=== PATIENT | female | born 1955 | race Hispanic/Latino ===

== ENCOUNTER 2018-09-09 18:58 | Emergency (ER) | payer SELFPAY ==
--- OUTSIDE RECORDS SUMMARY | 2018-09-09 19:00 | XMS REPORT | Clinical Summary ---
Author Author [facility] Address Unknown Phone Unavailable Care Team Providers Care Preanalytics Team Lead Name Role Phone Asked, No Pcp PCP Unavailable Allergies Not on File Medications Not on file Active Problems Not on file Encounters Care Team Description Date Type Specialty Aliyah Dale MD Clary, Danisha, MA Routine medical exam (Primary Dx) 03/18/2018 [facility] after 09/08/2017 Social History Date Tobacco Use Types Packs/Day Years Used Never Assessed Sex Assigned at Date Recorded Not on file Industry Job Start Date Occupation Not on file Not on file Not on file Travel End Travel History Travel Start No recent travel history available. Last Filed Vital Signs Not on file Plan of Treatment Health Maintenance Due Date Last Done Comments CERVICAL CANCER SCREENING 1977 BREAST CANCER SCREENING 2006 COLON CANCER SCREENING 2006 SHINGLES VACCINES (1 of 2006 2) INFLUENZA VACCINE 03/04/2018 Procedures Comments Procedure Name Priority Date/Time Associated Diagnosis WELLNESS EVENT QFT Routine 03/18/2018 Routine medical exam 6:56 AM CDT after 09/08/2017 Results * Wellness event QFT (03/18/2018 6:56 AM CDT) Quantiferon TB gold plus Negative Negative [facility] Comment: Interpretive Data: Quantiferon TB Gold Plus Interferon gamma release is measured for specimens from each of the four collection tubes. A qualitative result (Negative, Positive, or Indeterminate) is based on interpretation of the four values, NIL, MITOGEN minus NIL (MITOGEN-NIL), TB1 minus NIL (TB1-NIL), and TB2 minus NIL (TB2-NIL). The NIL value represents nonspecific reactivity produced by the patient specimen. The MITOGEN-NIL value serves as the positive control for the patient specimen, demonstrating successful lymphocyte activity. The TB1-NIL tube specifically detects CD4+ lymphocyte reactivity, specifically stimulated by the TB1 antigens. The TB2-NIL tube detects both CD4+ and CD8+ lymphocyte reactivity, stimulated by TB2 antigens. An overall Negative result does not completely rule out TB infection. A false-positive result in the absence of other clinical evidence of TB infection is not uncommon. Refer to: Updated Guidelines for Using Interferon Gamma Release Assays to Detect Mycobacterium tuberculosis Infection --- [place], 2010 (http://www.cdc.gov/mmwr/previ ew/mmwrhtml/gd4067h4.htm), for more information concerning test performance in low-prevalence populations and use in occupational screening. Quantiferon plus TB1 0.06 0.00 - 0.34 IU/mL [facility] minus NIL Quantiferon plus TB2 0.08 0.00 - 0.34 IU/mL [facility] minus NIL Quantiferon mitogen minus >10.00 IU/mL [facility] NIL Quantiferon NIL 0.02 IU/mL [facility] Comment: Performed by [facility], [address] [place] [address] [email or web address], Ivan Blanco MD - Lab. Director Specimen Serum Performing Organization Address City/State/Zipcode Phone Number [facility] [address] [place] [address] after 09/08/2017 Insurance Payer Benefit Subscriber ID Type Phone Address Plan / Group CIGNA CIGNA OPEN xxxxxxxxxxx HMO ACCESS/NET WORK Advance Directives Patient has advance care planning documents on file. For more information, sai lundy contact: Ken Conley [address] [place] [address]
== END 2018-09-09 19:04 | disposition left against medical advice (07) ==
LOC: ER 18:58
DX: S09.93XA Unspecified injury of face, initial encounter (principal)

== ENCOUNTER 2018-09-09 19:52 | Emergency (ER) | payer OTHER ==
[~2018-09-09] VITALS: Ht 154.9 cm; Wt 83.5 kg
--- OUTSIDE RECORDS SUMMARY | 2018-09-09 19:55 | XMS REPORT | Clinical Summary ---
Author Author [facility] Address Unknown Phone Unavailable Care Team Providers Care Yard Truck Driver Name Role Phone Asked, No Pcp PCP [...] CDT) Quantiferon TB gold plus Negative Negative [facility] Comment: Interpretive Data: Quantiferon TB Gold [...] tuberculosis Infection --- [place], 2010 (http://www.cdc.gov/mmwr/previ ew/mmwrhtml/xw9986i4.htm), for more information concerning test performance in low-prevalence populations and use in occupational screening. Quantiferon plus TB1 0.06 0.00 - 0.34 IU/mL [facility] minus NIL Quantiferon plus TB2 0.08 0.00 - 0.34 IU/mL [facility] minus NIL Quantiferon mitogen minus >10.00 IU/mL [facility] NIL Quantiferon NIL 0.02 IU/mL [facility] Comment: Performed by [facility], [address] [place] [address] [email or web address], Ivan Blanco MD - Lab. Director Specimen Serum Performing Organization Address City/State/Zipcode Phone Number [facility] [address] [place] [address] after 09/08/2017 Insurance Payer Benefit Subscriber ID Type Phone Address Plan / Group CIGNA CIGNA OPEN xxxxxxxxxxx HMO ACCESS/NET WORK Advance Directives Patient has advance care planning documents on file. For more information, sai lundy contact: Ken Conley [address] [facility] [place] [address]
[2018-09-09] MEDS ORDERED: HYDROCODONE/APAP 5MG-325MG TAB PO ONE (20:30)
--- NOTE | 2018-09-09 21:08 | Diagnostic Imaging Report ---
History: Swollen eye Comparison studies: None Technique: Axial images were obtained from the skull base to the vertex. Coronal and sagittal reconstructions obtained from the axial data. Dose modulation, iterative reconstruction, and/or weight based adjustment of the mA/kV was utilized to reduce the radiation dose to as low as reasonably achievable. Findings: Scalp/skull: A large acute left periorbital and supraorbital superficial hematoma is not associated with subcutaneous emphysema or with hyperdense foreign bodies. No underlying fractures. Extra-axial spaces: No masses. No fluid collections. Brain sulci: Appropriate for age. Ventricles: Normal in size and configuration. No hydrocephalus. Parenchyma: Subtle hypodensities in the supratentorial white matter are small vessel ischemic changes. No masses, hemorrhage, acute or chronic cortical vascular insults. Sellar/suprasellar region: No abnormalities Craniocervical junction: Patent foramen magnum. No Chiari one malformation. IMPRESSION: 1. Acute left periorbital/supraorbital superficial hematoma. 2. No underlying fractures. 3. No acute intracranial abnormalities. 4. Incidental mild supratentorial white matter small vessel ischemic changes. Signed by: Dr. Antonio Guo M.D. on 09/09/2018 9:05 PM
== END 2018-09-09 21:20 | disposition home or self-care (01) ==
LOC: FSED 19:52
DX: S00.83XA Contusion of other part of head, initial encounter (principal); H11.32 Conjunctival hemorrhage, left eye; W22.09XA Striking against other stationary object, initial encounter; Y92.008 Other place in unspecified non-institutional (private) residence as the place of occurrence of the external cause
CPT/HCPCS: 70450; 99283

== ENCOUNTER 2019-11-14 09:48 | Inpatient (IN) | payer OTHER ==
[~2019-11-14] VITALS: Ht 154.9 cm; Wt 78.2 kg
--- OUTSIDE RECORDS SUMMARY | 2019-11-14 09:52 | XMS REPORT ---
[facility] Address Unknown Phone Unavailable Care Team Providers Care Continuity Editor Name Role Phone Darian NEVILLE Unavailable Unavailable Problems This patient has no known problems. Allergies, Adverse Reactions, Alerts This patient has no known allergies or adverse reactions. Medications This patient has no known medications. Results Test Description Test Time Test Comments Text Results Atomic Results Result Comments CT BRAIN WO-HOPD 2018-09-09 21:03:00 [place] [address] Patient Name: CHRISTAL MCCOLLUM MR #: [id number] : 1955 Age/Sex: 63/F Req #: [id number] Adm Physician: Ordered by: LENCHO NEVILLE MD Report #: [id number] Location: [facility] Room/Bed: Procedure: [id number] HOPD/CT BRAIN WO-HOPD Exam Date: 09/09/18 Exam Time: 2044 REPORT STATUS: Signed History: Swollen eye Comparison studies: None Technique: Axial images were obtained from the skull base to the vertex. Coronal and sagittal reconstructions obtained from the axial data. Dose modulation, iterative reconstruction, and/or weight based adjustment of the mA/kV was utilized to reduce the radiation dose to as low as reasonably achievable. Findings: Scalp/skull: A large acute left periorbital a nd supraorbital superficial hematoma is not associated with subcutaneous emphysema or with hyperdense foreign bodies. No underlying fractures. Extra-axial spaces: No masses. No fluid collections. Brain sulci: Appropriate for age. Ventricles: Normal in size and configuration. No hydrocephalus. Parenchyma: Subtle hypodensities in the supratentorial white matter are small vessel ischemic changes. No masses, hemorrhage, acute or chronic cortical vascular insults. Sellar/suprasellar region: No abnormalities Craniocervical junction: Patent foramen magnum. No Chiari one malformation. IMPRESSION: 1. Acute left periorbital/supraorbital superficial hematoma. 2. No underlying fractures. 3. No acute intracranial abnormalities. 4. Incidental mild supratentorial white matter small vessel ischemic changes. Signed by: Dr. Antonio Guo M.D. on 09/09/2018 9:05 PM Dictated By: ANTONIO GUO MD, MD 04 Transcribed By: ROSANNE on 09/09/182104 COPY TO: LENCHO NEVILLE MD
--- NOTE | 2019-11-14 11:27 | Diagnostic Imaging Report ---
EXAMINATION: CHEST SINGLE (PORTABLE) INDICATION: SOB. COMPARISON: None FINDINGS: TUBES and LINES: None. LUNGS: Low lung volumes. There are patchy predominantly peripheral and basilar predominant opacities. Mild bilateral interstitial opacities. PLEURA: No pleural effusion or pneumothorax. HEART AND MEDIASTINUM: The cardiomediastinal silhouette is unremarkable. There are atherosclerotic calcifications within the aorta. BONES AND SOFT TISSUES: No acute osseous lesion. Soft tissues are unremarkable. UPPER ABDOMEN: No free air under the diaphragm. IMPRESSION: Patchy peripheral and basilar opacities, which would be compatible with atypical pneumonia in the setting of fever and cough. Possible mild pulmonary interstitial edema. Suggest follow-up chest radiograph in 6-8 weeks to assess for resolution. Signed by: Dr. Rogelio Gaines MD on 11/14/2019 11:24 AM
--- NOTE | 2019-11-14 13:53 | NUR ---
consult [id number]
[2019-11-14 14:14] LABS: BASOPHILS % 0.4 % (0.0-1.0); HEMATOCRIT 39.9 % (34.2-44.1); HEMOGLOBIN 13.8 g/dL (12.0-16.0); LYMPHOCYTES # (AUTO) 1.9 (1.0-3.2); LYMPHOCYTES % 18.3 % (18.0-39.1); MEAN CORPUSCULAR HEMOGLOBIN 28.9 pg (28-32); MEAN CORPUSCULAR HGB CONC 34.6 g/dL (31-35); MEAN CORPUSCULAR VOLUME 83.5 fL (81-99); MONOCYTES # (AUTO) 0.4 (0.2-0.8); MONOCYTES % 3.6 % (4.4-11.3); NEUTROPHILS % 75.7 % (38.7-80.0); PLATELET COUNT 449 x10e3/uL (140-360); RED BLOOD COUNT 4.78 x10e6/uL (3.6-5.1); RED CELL DISTRIBUTION WIDTH 13.4 % (11.7-14.4)
[2019-11-14 14:31] LABS: ALANINE AMINOTRANSFERASE 46 IU/L (0-55); ALBUMIN 3.3 g/dL (3.5-5.0); ALBUMIN/GLOBULIN RATIO 0.8 (0.8-2.0); ALKALINE PHOSPHATASE 152 IU/L (40-150); BLOOD UREA NITROGEN 7 mg/dL (7-26); BUN/CREATININE RATIO 10 (6-25); CALCIUM 9.2 mg/dL (8.4-10.2); CARBON DIOXIDE 24 mmol/L (22-29); CHLORIDE 103 mmol/L (98-107); CREATININE, SERUM 0.67 mg/dL (0.57-1.11); EST GLOMERULAR FILTRATION RATE > 60 ML/MIN (60-); GLUCOSE 187 mg/dL (74-118); SODIUM 138 mmol/L (136-145)
--- NOTE | 2019-11-14 14:40 | NUR ---
received report from YANET Shanks from ER. pt coming to room 183, on droplet isolation.
[2019-11-14] MEDS ORDERED: LACTATED RINGER'S 1,000 ML IV ONE (15:00)
[2019-11-14] MEDS ORDERED: ACETAMINOPHEN 325 MG TAB PO PRN (15:00)
[2019-11-14] MEDS ORDERED: ONDANSETRON HCL INJ 2MG/ML 2ML 2 MG/ML VIAL IV PRN (15:00)
[2019-11-14] MEDS ORDERED: MORPHINE SULFATE 2 MG/ML SYR 1ML IV PRN (15:00)
--- NOTE | 2019-11-14 15:00 | NUR ---
received pt from the ER via stretcher. pt is alert, no s/s of distress. ambulates with no assist. pt oriented to room and call light place within reach. pt instructed to call RN for help
--- NOTE | 2019-11-14 15:02 | Consultation ---
DATE OF CONSULTATION: Pulmonary Critical Care Consultation CHIEF COMPLAINT: Chest discomfort and cough. REFERRING PHYSICIAN: Dr. Ruelas. HISTORY OF PRESENT ILLNESS: The patient is a 64-year-old woman. She has a history of hypertension as well as diabetes treated with medication. She denies any prior history of asthma, COPD or other respiratory problems. She reports a nonproductive cough over the past 4-5 days. She has some discomfort in her chest and some mild shortness of breath. She is unsure about fevers at home. PAST SURGICAL HISTORY: Status post cholecystectomy. PAST MEDICAL HISTORY: 1. Hypertension. 2. Diabetes. 3. No prior respiratory problems. SOCIAL HISTORY: The patient has never been a smoker. She is not a drinker. 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. Apparently someone on her shift tested positive for COVID-19. ALLERGIES: NO KNOWN DRUG ALLERGIES. FAMILY HISTORY: Family history is noncontributory. REVIEW OF SYSTEMS: Possible fevers. No headache. There is no neck pain. She has no phlegm production. She does have some chest discomfort. She also reports some cough that is nonproductive. She has no abdominal pain. There is no nausea or vomiting. She has no leg edema. She has no calf tenderness. PHYSICAL EXAMINATION: VITAL SIGNS: The patient is afebrile. The blood pressure is 160/93. Saturation is 92% and the pulse is 98. HEENT: Shows no facial swelling or erythema. The oropharynx is normal. LYMPHATIC: Shows no submandibular, cervical, or supraclavicular adenopathy. CARDIAC: Reveals regular rate and rhythm with a normal S1 and S2. LUNGS: Auscultation of lungs reveals rhonchorous breath sounds bilaterally. There is no wheezing. ABDOMEN: Soft, nontender. There is no rebound or guarding. EXTREMITIES: Show no leg edema or calf tenderness. There is no cyanosis or clubbing. SKIN: Shows no rashes. RADIOGRAPHIC DATA: Chest x-ray shows bilateral scattered infiltrates suggestive of atypical pneumonia. IMPRESSION: 1. Atypical pneumonia. 2. Possible COVID-19 infection. 3. Diabetes. 4. Hypertension. PLAN: 1. Judicious use of IV fluids. 2. Zithromax. 3. Coronavirus testing. 4. Monitor for possible worsening of symptoms. 5. Continue prior antihypertensives and diabetic regimens. MD BRITTNEY Bourgeois/ROBE /[id number]
--- NOTE | 2019-11-14 15:12 | NUR ---
pt arrived to room 183; pt awake, alert, oriented X3, no signs of distress. report given to YANET Nice who will assume care.
[2019-11-14 15:30] VITALS: BP 165/78
[2019-11-14] MEDS: CEFTRIAXONE SOD 1 GM/NS 50 ML 50 ML IV SCH (15:33)
[2019-11-14] MEDS: AZITHROMYCIN 250 MG TAB PO SCH (15:34)
[2019-11-14] MEDS ORDERED: METFORMIN HCL500 MG PO (15:38)
[2019-11-14 15:41] VITALS: BP 165/78
[2019-11-14 15:47] VITALS: BP 165/78
--- NOTE | 2019-11-14 16:02 | Consultation ---
DATE OF CONSULTATION: REASON FOR CONSULTATION: Pneumonia. 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 The patient comes in with 3 days history of fever, cough, shortness of breath. The patient started to get worse and came to the emergency room, where she was evaluated and admitted. The patient was seen in the emergency room. PAST MEDICAL HISTORY: She denies. PAST SURGICAL HISTORY: She denies. ALLERGIES: NKA. SOCIAL HISTORY: There is no smoking, drug abuse, or alcohol abuse. FAMILY HISTORY: Noncontributory. REVIEW OF SYSTEMS: Besides the cough, shortness of breath and fever. Her shortness of breath is not extreme. She can finish one sentence. The patient is being admitted. LABORATORY DATA: Still pending. Since I saw her urgently, the patient visited the emergency room during the season of COVID-19 outbreak. Chest x-ray showed peripheral basilar opacity. PHYSICAL EXAMINATION: GENERAL: She is currently alert, oriented, does not seem to be in acute distress. VITAL SIGNS: Stable, currently afebrile as mentioned above. HEENT: She is not icteric. NECK: Supple. CHEST: Few crackles at the bases. COR: S1, S2. ABDOMEN: Soft. Bowel sounds present. No tenderness. EXTREMITIES: No edema. SKIN: No rash. IMPRESSION: Atypical pneumonia, the season where we have COVID-19. We will admit the patient because she is short of breath. We will put her on azithromycin, Rocephin to rule out atypical pneumonia, IV fluid, oxygen support. We will put on droplet isolation. The patient was seen and examined. Discussed with the medical team. We will follow. MD LUANNE Mckoy/ROBE /[id number]
[2019-11-14] MEDS: ENOXAPARIN SOD INJ 40 MG/0.4 ML SYR SC SCH (17:01)
[2019-11-14] MEDS: INSULIN LISPRO 100 UNIT/1 ML 3ML VIAL SQ SCH ×2 (17:01→20:19)
[2019-11-14] MEDS: LACTOBACILLUS ACIDOPHILUS CAPSULE PO SCH (17:01)
--- NOTE | 2019-11-14 19:57 | History and Physical ---
CHIEF COMPLAINT: Chest pain. HISTORY OF PRESENT ILLNESS: This is a 64-year-old diabetic woman, who has been sick for 4 days now, where she developed fever, followed by cough and then the shortness of breath, and now she also has diarrhea every time when she eats, but no abdominal pain. The patient also developed chest pain in between her shoulder blades, and also some headache. Two days ago, the patient was tested for coronavirus at [place], but that she still has not gotten the results back yet. The patient denies any nausea or vomiting, but no appetite. PAST MEDICAL AND SURGICAL HISTORY: 1. Diabetes. 2. . 3. Cholecystectomy. MEDICATIONS: Please see medication reconciliation form. ALLERGIES: NONE. SOCIAL HISTORY: She does not smoke. FAMILY HISTORY: Positive for diabetes. REVIEW OF SYSTEMS: Ten-point review of system obtained and nothing else is significant other than what is stated in HPI. PHYSICAL EXAMINATION: VITAL SIGNS: Temperature 98.0, pulse 85, respiratory rate 27, and blood pressure 134/69. GENERAL: In no acute distress. SKIN: No rash. HEENT: Anicteric. Oropharynx is clear. NECK: Supple. LUNGS: Few crackles. HEART: Regular rate and rhythm. Normal S1, S2. ABDOMEN: Soft, nondistended, nontender. SKIN: No rash. MUSCULOSKELETAL: Painless range of motion. NEUROLOGIC: Alert and oriented x3. Cranial nerves II through XII intact. PSYCHIATRIC: No hallucination. LABORATORY DATA: White count 10, hemoglobin 14, and platelet count 449. Creatinine 0.67. Sugar 187. AST 40 and alkaline phosphatase 152. IMAGING DATA: Chest x-ray shows patchy peripheral and basilar opacities. ASSESSMENT AND PLAN: 1. Sepsis present on admission due to pneumonia with hypoxia, possibly due to coronavirus. Empirically, we will start IV Rocephin and p.o. azithromycin. I will support her with oxygen, small dose of morphine for her chest pain. We will repeat chest x-ray in the morning. Some IV fluids as well. 2. Diabetes. Sliding scale for now. 3. GI and DVT prophylaxes, Lovenox. Yiching Amrik Chappell MD YAL/MODL /[id number] MTDAnder
[2019-11-14 20:00] VITALS: BP 175/73
[2019-11-14] MEDS: ACETAMINOPHEN/CODEINE 300MG - 30MG TAB PO PRN (20:18)
--- NOTE | 2019-11-14 20:18 | NUR ---
Notified by PCT of patient's elevated BP of 175/73. Denies history of HTN, c/o pain to back, shoulders, neck, and head. Medicated for pain with PRN Tylenol #3. One-time dose of LR infusing at 125 ml/hr with 4 hours remaining. Will continue to monitor.
[2019-11-14 21:04] VITALS: BP 175/73
[2019-11-15] VITALS (7 sets, daily range): BP systolic 132–162; BP diastolic 63–70
[2019-11-15] MEDS: ACETAMINOPHEN/CODEINE 300MG - 30MG TAB PO PRN ×2 (05:22→20:19)
[2019-11-15 05:47] LABS: BASOPHILS % 0.2 % (0.0-1.0); EOSINOPHILS % 0.1 % (0.0-6.0); HEMATOCRIT 37.1 % (34.2-44.1); HEMOGLOBIN 12.6 g/dL (12.0-16.0); LYMPHOCYTES # (AUTO) 2.5 (1.0-3.2); MEAN CORPUSCULAR HEMOGLOBIN 28.9 pg (28-32); MEAN CORPUSCULAR VOLUME 85.1 fL (81-99); MONOCYTES # (AUTO) 0.5 (0.2-0.8); MONOCYTES % 5.5 % (4.4-11.3); NEUTROPHILS # (AUTO) 6.1 (2.1-6.9); NEUTROPHILS % 63.9 % (38.7-80.0); PLATELET COUNT 427 x10e3/uL (140-360); RED BLOOD COUNT 4.36 x10e6/uL (3.6-5.1); RED CELL DISTRIBUTION WIDTH 13.5 % (11.7-14.4)
[2019-11-15 06:12] LABS: ALANINE AMINOTRANSFERASE 39 IU/L (0-55); ALBUMIN 3.1 g/dL (3.5-5.0); ALKALINE PHOSPHATASE 145 IU/L (40-150); ANION GAP 18.6 mmol/L (8-16); BILIRUBIN,DIRECT 0.2 mg/dL (0.0-0.5); BLOOD UREA NITROGEN 9 mg/dL (7-26); BUN/CREATININE RATIO 15 (6-25); CALCIUM 8.8 mg/dL (8.4-10.2); CARBON DIOXIDE 19 mmol/L (22-29); CHLORIDE 103 mmol/L (98-107); CREATININE, SERUM 0.61 mg/dL (0.57-1.11); EST GLOMERULAR FILTRATION RATE > 60 ML/MIN (60-); GLUCOSE 139 mg/dL (74-118); POTASSIUM 3.6 mmol/L (3.5-5.1); SODIUM 137 mmol/L (136-145)
[2019-11-15 07:13] LABS: HYPOCHROMASIA SLIGHT; LYMPHOCYTES % (MANUAL) 24 % (19-48); MONOCYTES % (MANUAL) 5 % (3.4-9.0); MYELOCYTES % (MANUAL) 1 % (0-0); NEUTROPHILS % (MANUAL) 70 % (40-74); RBC MORPHOLOGY COMMENT NORMAL
[2019-11-15 07:14] LABS: PLATELET ESTIMATE ADEQUATE; PLATELET MORPHOLOGY COMMENT FEW LARGE
[2019-11-15] MEDS: INSULIN LISPRO 100 UNIT/1 ML 3ML VIAL SQ SCH ×4 (07:30→21:00)
[2019-11-15] MEDS: LACTOBACILLUS ACIDOPHILUS CAPSULE PO SCH ×2 (08:44→17:18)
[2019-11-15] MEDS: AZITHROMYCIN 250 MG TAB PO SCH (08:46)
--- NOTE | 2019-11-15 10:15 | NUR ---
Telephonic visit. Pt. expressed no spiritual or emotional concerns at this time. Provided hospitality and information on how to reach specialist icu, if needed. FCO AMBRIZ Accounting Clerk Spiritual Care Department O: [phone]
--- NOTE | 2019-11-15 10:26 | Diagnostic Imaging Report ---
EXAMINATION: CHEST SINGLE (PORTABLE) INDICATION: Shortness of breath COMPARISON: Chest radiograph 11/14/2019 FINDINGS: LINES/TUBES:EKG leads overlie the chest. LUNGS:The lungs are moderately inflated. Slight interval increase in bilateral right greater than left patchy opacities. PLEURA:No pleural effusion or pneumothorax. MEDIASTINUM:The cardiomediastinal silhouette appears unchanged in size and shape. BONES/SOFT TISSUES:No acute osseous injury. ABDOMEN:No free air under the diaphragm. IMPRESSION: Slight interval increase in right greater than left patchy interstitial and airspace opacities, concerning for aspiration or pneumonia in the proper clinical setting.. Signed by: Ruperto Paiz MD on 11/15/2019 10:23 AM
[2019-11-15] MEDS: LOSARTAN POTASSIUM 25 MG TAB PO SCH (10:50)
--- NOTE | 2019-11-15 11:00 | Progress Note ---
DATE: SUBJECTIVE: The patient reports some chest discomfort that is has worse with coughing. She is afebrile. She is off oxygen. PHYSICAL EXAMINATION: VITAL SIGNS: Stable. The blood pressure 132/63, saturation is 95% and the pulse is 81. HEENT: No facial swelling or erythema. CARDIAC: Regular rate and rhythm with normal S1, S2. There are no murmurs or rubs. LUNGS: Auscultation of the lungs shows clear breath sounds bilaterally. There is no wheezing. ABDOMEN: Soft, nontender. There is no rebound or guarding. EXTREMITIES: No leg edema or calf tenderness. There is no cyanosis or clubbing. SKIN: No rashes. NEUROLOGICAL: No focal abnormalities. LABORATORY DATA: White blood cell count is 9.5, hemoglobin is 12.6 and the platelet count is 427,000. The BUN to creatinine ratio is 9 to 0.61 and the other electrolytes are significant for a low carbon dioxide of 19. IMPRESSION: 1. Atypical pneumonia. 2. Diabetes. 3. Hypertension. 4. Possible COVID-19 infection. PLAN: 1. Continue antibiotics. 2. Await coronavirus testing. 3. Continue to monitor and control blood sugars as needed. Doc Ragland MD [facility]/ROBE /[id number]
[2019-11-15] MEDS ORDERED: GUAIFENESIN/CODEINE 10 ML CUP PO PRN (15:15)
[2019-11-15] MEDS ORDERED: BENZONATATE 100 MG CAP PO PRN (15:15)
--- NOTE | 2019-11-15 15:28 | NUR ---
patient informed Dr. Chappell of positive covid results from the test she had done prior to this admission. all needed precautions already in place.
[2019-11-15] MEDS: CEFTRIAXONE SOD 1 GM/NS 50 ML 50 ML IV SCH (17:17)
[2019-11-15] MEDS: ENOXAPARIN SOD INJ 40 MG/0.4 ML SYR SC SCH (17:18)
--- NOTE | 2019-11-15 18:52 | Progress Note ---
DATE: SUBJECTIVE: Ms. Dalton is feeling better. There are no new complaints. Her COVID-19 remains pending, however, the COVID-19 which was done in [place] came back positive according to the patient. PHYSICAL EXAMINATION: GENERAL: Currently alert, oriented, does not seem to be in acute distress. VITAL SIGNS: Stable, currently afebrile. HEENT: She is not icteric. NECK: Supple. CHEST: Clear. HEART: S1, S2. No S3, S4, or murmur. ABDOMEN: Soft. Bowel sounds present. No tenderness. EXTREMITIES: No edema. SKIN: No rash. IMPRESSION: COVID-19 clinically better, can discharge home tomorrow. Supportive care to see me in 2 weeks. Push p.o. fluid. Discussed with the patient's antibiotic treatment. MD LUANNE Mckoy/ROBE /[id number]
--- NOTE | 2019-11-15 20:05 | NUR ---
Patient visited in room during nursing rounds. Patient alert and oriented x3. No distress or discomfort noted. Pt on droplet isolation for positive COVID diagnosis. Pt ambulatory with standby assist prn. Pt has intermittent cough and will be medicated accordingly. On field service technician. Call arias within reach. Will monitor pt closely.
[2019-11-16 00:16] VITALS: BP 147/70
--- NOTE | 2019-11-16 07:00 | NUR ---
BEDSIDE SHIFT REPORT RECEIVED FROM NIGHT RN. PT DENIES NEEDS AT THIS TIME.
[2019-11-16] MEDS: INSULIN LISPRO 100 UNIT/1 ML 3ML VIAL SQ SCH ×3 (07:30→16:30)
[2019-11-16 08:00] VITALS: BP 147/70
[2019-11-16 08:47] VITALS: BP 157/72
[2019-11-16] MEDS: LOSARTAN POTASSIUM 25 MG TAB PO SCH (08:52)
[2019-11-16] MEDS: AZITHROMYCIN 250 MG TAB PO SCH (08:53)
[2019-11-16] MEDS: LACTOBACILLUS ACIDOPHILUS CAPSULE PO SCH ×2 (08:53→17:00)
[2019-11-16 09:00] VITALS: BP 157/72
--- NOTE | 2019-11-16 10:55 | Progress Note ---
DATE: SUBJECTIVE: The patient feels better. She still has some cough. She has less chest discomfort. She has no fever. PHYSICAL EXAMINATION: VITAL SIGNS: The patient is afebrile. The vital signs are stable. HEENT: Shows no facial swelling or erythema. CARDIAC: Reveals a regular rate and rhythm with normal S1 and S2. LUNGS: Auscultation of lungs shows clear breath sounds bilaterally. There is no wheezing. ABDOMEN: Soft and nontender. There is no rebound or guarding. EXTREMITIES: Shows no leg edema or calf tenderness. There is no cyanosis or clubbing. SKIN: Shows no rashes. IMPRESSION: 1. Viral atypical pneumonia, probably secondary to COVID-19. 2. Diabetes. 3. Hypertension. PLAN: 1. Complete Zithromax at home. 2. P.r.n. medication for cough. 3. Probable discharge home. MD BRITTNEY Bourgeois/ROBE /[id number]
[2019-11-16 12:02] VITALS: BP 161/76
[2019-11-16] MEDS: CEFTRIAXONE SOD 1 GM/NS 50 ML 50 ML IV SCH (15:00)
[2019-11-16 16:10] VITALS: BP 161/76
[2019-11-16] MEDS: ENOXAPARIN SOD INJ 40 MG/0.4 ML SYR SC SCH (17:00)
--- NOTE | 2019-11-16 18:41 | Progress Note ---
DATE: SUBJECTIVE: Ms. Dalton is feeling much better. REVIEW OF SYSTEMS: Shortness breath resolved. Her cough is improving significantly. PHYSICAL EXAMINATION: GENERAL: She is currently alert, oriented, does not seem in acute distress. VITAL SIGNS: Stable, afebrile. HEENT: Normocephalic. NECK: Supple. CHEST: Clear. HEART: No murmur. ABDOMEN: Soft. IMPRESSION: COVID-19, improving. Could be discharged home with supportive care. Discussed with Internal Medicine. Discussed with the medical team. MD LUANNE Mckoy/MODNgozi /[id number]
--- NOTE | 2019-11-16 19:31 | Discharge Summary ---
FINAL DIAGNOSIS: Sepsis, present on admission due to COVID-19 pneumonia with hypoxia. SECONDARY DIAGNOSIS: Diabetes. CONSULTANTS: 1. Dr. Neely, Infectious Disease. 2. Dr. Ragland, pulmonary. PROCEDURES/STUDIES PERFORMED: None. HISTORY: Per H and P. HOSPITAL COURSE: The patient was admitted, empiric Rocephin and azithromycin were given. The patient is improving. I have discussed this case with Dr. Neely. We will go ahead and let her go home to her. She understands that she needs self quarantine for at least two weeks. She will follow up with Dr. Neely in two weeks. I have started her on low-dose losartan. Even though she does not have a diagnosis of hypertension, her blood pressure is little bit elevated here and also for renal protection given for diabetes. The patient was also prescribed the Tylenol No. 3 for both cough and pleuritic chest pain. The patient was seen and examined today. CONDITION ON DISCHARGE: Improved. DISCHARGE MEDICATIONS: Please see medication reconciliation form. It took 32 minutes total to discharge this patient. MD JANICE Cid/ROBE /[id number] MTDD
== END 2019-11-16 17:15 | disposition home or self-care (01) | DRG 871 ==
LOC: ER 09:48 → ERHOLD 12:15 → IMCU 15:01
PROVIDERS: ADMIT Internal Medicine; ATTEND Internal Medicine
DX: A41.9 Sepsis, unspecified organism (principal); U07.1 COVID-19; J12.89 Other viral pneumonia; I10 Essential (primary) hypertension; E11.9 Type 2 diabetes mellitus without complications; U07.0 Vaping-related disorder; R09.02 Hypoxemia
CPT/HCPCS: 36415; 71045; 80048; 80053; 80076; 82948; 85025; 87635; 96372; 99284; J0696; J1650; J2405; J7121